=== PATIENT | female | born 1950 | race Caucasian/White ===

== ENCOUNTER 2017-01-07 06:02 | Day surgery (SDC) | payer MEDICARE, OTHER ==
[2017-01-07] MEDS ORDERED: LACTATED RINGERS 1,000 ML IV ONE (07:00)
[2017-01-07] MEDS ORDERED: PROPOFOL 200 MG/20 ML VIAL IVP ONE (07:10)
[2017-01-07] MEDS ORDERED: KETAMINE 500 MG/10 ML VIAL IVP ONE (07:10)
[2017-01-07] MEDS ORDERED: GLYCOPYRROLATE 1 MG/5 ML VIAL IVP ONE (07:10)
[2017-01-07] MEDS ORDERED: MIDAZOLAM 2 MG/2 ML VIAL IVP ONE (07:10)
[2017-01-07] MEDS ORDERED: EPINEPHrine 1 MG/ML AMP IVP ONE (08:35)
[2017-01-07 09:30] VITALS: BP 113/76
== END 2017-01-07 06:03 | disposition home or self-care (01) ==
LOC: SDS 06:02
PROVIDERS: ATTEND Surgery
PROC: 0DBN8ZZ Excision of Sigmoid Colon, Via Natural or Artificial Opening Endoscopic (ICD-10-PCS; principal; 2017-01-07 07:30)
DX: Z12.11 Encounter for screening for malignant neoplasm of colon (principal); K64.4 Residual hemorrhoidal skin tags; K57.30 Diverticulosis of large intestine without perforation or abscess without bleeding; I10 Essential (primary) hypertension; R56.9 Unspecified convulsions; Z87.891 Personal history of nicotine dependence; F43.10 Post-traumatic stress disorder, unspecified; F41.8 Other specified anxiety disorders
CPT/HCPCS: 45385; J7120; 88305